=== PATIENT | male | born 1985 | race Hispanic/Latino ===

== ENCOUNTER 2019-06-10 09:54 | Outpatient (CLI) | payer OTHER ==
--- NOTE | 2019-06-10 12:05 | XRay Report ---
XR hand 2V LT INDICATION / CLINICAL INFORMATION: LEFT HAND PAIN. COMPARISON: None available. FINDINGS: BONES/JOINT(S): No acute fracture or subluxation. No significant degenerative changes. SOFT TISSUES: No significant abnormality. ADDITIONAL FINDINGS: None. Signer Name: Dean Bertrand MD Signed: 06/10/2019 12:01 PM Workstation Name: [id number]
--- NOTE | 2019-06-10 13:07 | Ultrasound Report ---
SCROTAL ULTRASOUND WITH DOPPLER HISTORY: TESTICULAR PAIN COMPARISON: None. TECHNIQUE: Grayscale, color and spectral Doppler images were obtained of the scrotum. FINDINGS: RIGHT: Right testicle: No significant abnormality. No mass. Right testicular size: 4.5 x 1.8 x 2.9 cm. Right epididymis: No significant abnormality. LEFT: Left testicle: No significant abnormality. No mass. Left testicular size: 4.5 x 1.8 x 2.6 cm. Left epididymis: No significant abnormality. Additional findings: Small right hydrocele. Bilateral thickened scrotal wall at 6 mm. Prominent vesse ls of the left scrotum and adjacent to the spermatic cord. IMPRESSION: 1. Left varicocele. 2. Nonspecific scrotal wall thickening. 3. Small right hydrocele. 4. Normal testes. Signer Name: Ace Agudelo MD Signed: 06/10/2019 1:03 PM Workstation Name: [id number]
== END 2019-06-10 09:55 | disposition home or self-care (01) ==
LOC: SPVWC 09:54
PROVIDERS: ATTEND Family Medicine
DX: N43.2 Other hydrocele (principal); M79.642 Pain in left hand
CPT/HCPCS: 93975